=== PATIENT | female | born 1970 | race Caucasian/White ===

== ENCOUNTER 2017-05-17 15:57 | Day surgery (SDC) | payer OTHER ==
[~2017-05-17 15:57] MED LIST: Dexamethasone 20 MG/5 ML VIAL ONE; Lidocaine 1% PF 5 ML VIAL ONE; Ondansetron HCl/PF 4 MG/2 ML Vial ONE; Propofol 200 MG/20 ML VIAL ONE; ePHEDrine/0.9% NaCl/PF SYRINGE 50 mg/10 ml ONE
[2017-05-17] MEDS ORDERED: Fluorouracil 100 MG, Enoxaparin Sodium 25 MG, EPINEPHrine 0.3 MG in Ophthalmic Irrigati... IVPB SCH (16:08)
[2017-05-17] MEDS ORDERED: Phenylephrine 2.5% Ophth Soln 5 ML BOT ONE (16:26)
[2017-05-17] MEDS ORDERED: Cyclopentolate 1% Opth Drop 2 ML BOT ONE (16:26)
[2017-05-17] MEDS ORDERED: Midazolam HCl 2 mg/2 ml Vial ONE (17:01)
[2017-05-17] MEDS ORDERED: Fentanyl 250 MCG/5 ML VIAL ONE (17:01)
--- NOTE | 2017-05-18 10:26 | OP ---
DATE OF PROCEDURE: 05/17/2017 PREOPERATIVE DIAGNOSIS: Rhegmatogenous retinal detachment, right eye. POSTOPERATIVE DIAGNOSIS: Rhegmatogenous retinal detachment, right eye. PROCEDURE PERFORMED: Pars plana vitrectomy and retinal detachment repair, right eye. SURGEON: Dr. Fletcher Byrnes. ANESTHESIA: General endotracheal anesthesia. COMPLICATIONS: None. PROCEDURE IN DETAIL: The patient was identified in the preoperative holding area, appropriate informed consent for the planned surgical procedure on the right eye had been obtained. The patient was transported to the operative suite where appropriate cardiopulmonary monitoring established. General endotracheal anesthesia was initiated. Retrobulbar block was placed. The patient was prepped and draped in the usual sterile manner for ophthalmic surgery on the right eye. Lid speculum was placed in the right eye. The 25- gauge trocars were placed in conjunctiva and sclera supratemporally, inferotemporally, and supranasally. Infusion line was placed inferotemporally. Light pipe and vitreous cutter were inserted into the eye. Core vitrectomy was performed. Tear was noted at the 3 o'clock position. Posterior drain retinotomy was created and a complete air fluid exchange was performed. A 360 laser was placed using endolaser delivery device. A 28% sulfur hexafluoride gas was infused into the eye. Trocars were removed. Superior temporal and superior nasal sclerotomy was sutured closed. Retrobulbar Kenalog and subconjunctival Ancef were placed. Antibiotic ointment placed, and the eye was patched and shielded. Patient taken to the postoperative recovery unit in good condition suffered no immediate perioperative complications. DISCHARGE INSTRUCTIONS: The patient was instructed to keep patch and shield on , position left side down. Follow up in the morning with Dr. Byrnes. NITA
== END 2017-05-17 20:30 | disposition home or self-care (01) ==
LOC: SDC 15:57
PROVIDERS: ATTEND Ophthalmology Retina Specialist
PROC: 08T43ZZ Resection of Right Vitreous, Percutaneous Approach (ICD-10-PCS; principal; 2017-05-17)
DX: H33.011 Retinal detachment with single break, right eye (principal); Z88.2 Allergy status to sulfonamides
CPT/HCPCS: 67025; J0171; J1100; J1650; J2001; J2250; J2405; J2704; J3010; J9190

== ENCOUNTER 2017-06-16 10:42 | Day surgery (SDC) | payer OTHER ==
[2017-06-15 15:54] VITALS: BMI 25.8
[~2017-06-16 10:42] MED LIST changes: +Cyclopentolate 1% Opth Drop 2 ML BOT FS SCH; -Dexamethasone 20 MG/5 ML VIAL ONE; +EPINEPHrine 0.3 MG in Ophthalmic Irrigation Solution 500 ML FS SCH; -Lidocaine 1% PF 5 ML VIAL ONE; -Ondansetron HCl/PF 4 MG/2 ML Vial ONE; +Phenylephrine 2.5% Ophth Soln 5 ML BOT FS SCH; -Propofol 200 MG/20 ML VIAL ONE; -ePHEDrine/0.9% NaCl/PF SYRINGE 50 mg/10 ml ONE
[2017-06-16] MEDS ORDERED: Cyclopentolate 1% Opth Drop 2 ML BOT ONE (11:01)
[2017-06-16] MEDS ORDERED: Phenylephrine 2.5% Ophth Soln 5 ML BOT ONE (11:01)
[2017-06-16] MEDS ORDERED: Midazolam HCl 2 mg/2 ml Vial ONE (11:27)
[2017-06-16] MEDS ORDERED: Fentanyl 100 MCG/2 ML VIAL ONE (11:51)
[2017-06-16] MEDS ORDERED: Ondansetron HCl/PF 4 MG/2 ML Vial ONE ×2 (12:02→16:52)
[2017-06-16] MEDS ORDERED: Propofol 500 MG/50 ML VIAL ONE (12:15)
--- NOTE | 2017-06-16 16:24 | OP ---
DATE OF PROCEDURE: 06/16/2017 PREOPERATIVE DIAGNOSIS: Vitreous hemorrhage, right eye. POSTOPERATIVE DIAGNOSIS: Vitreous hemorrhage, right eye. PROCEDURE PERFORMED: Pars plana vitrectomy, right eye. SURGEON: Dr. Fletcher Byrnes. ANESTHESIA: General endotracheal anesthesia. PROCEDURE IN DETAIL: The patient was identified in the preoperative holding area. Appropriate infor med consent for the planned surgical procedure on the right eye has been obtained. The patient was t ransported to the OR suite. Appropriate cardiopulmonary monitoring established. General endotrachea l anesthesia was initiated. Local anesthesia was initiated with retrobulbar block. The patient was prepped and draped in the usual sterile manner for ophthalmic surgery on the right eye. Lid speculum was placed in the right eye. The 27-gauge trocars were placed in conjunctiva and sclera supratempor ally, inferotemporally, and supranasally. Infusion line was placed inferotemporally. A was pl aced in the supratemporal sclerotomy site and extensive amounts of blood was irrigated into the eye. Vitreous cutter was inserted into the eye and some inferior vitreous was removed containing blood. No areas of retinal elevation. No macular scarring were identified. Trocars were removed. Eye was noted to retain pressure well. Antibiotic ointment was placed, and the eye was patched and shielded. Patient was taken the postoperative recovering unit in good condition having suffered no immediate perioperative complications. DISCHARGE INSTRUCTIONS: The patient was instructed to keep patch and shield on, avoid lifting or nina ding, and follow up in the morning with Dr. Byrnes.
[2017-06-16] MEDS ORDERED: PROPOFOL 200 MG/20 ML VIAL ONE (16:52)
[2017-06-16] MEDS ORDERED: Dexamethasone 20 MG/5 ML VIAL ONE (16:52)
[2017-06-16] MEDS ORDERED: Lidocaine 1% PF 5 ML VIAL ONE (16:52)
== END 2017-06-16 14:06 | disposition home or self-care (01) ==
LOC: SDC 10:42
PROVIDERS: ATTEND Ophthalmology Retina Specialist
PROC: 08T43ZZ Resection of Right Vitreous, Percutaneous Approach (ICD-10-PCS; principal; 2017-06-16)
DX: H43.11 Vitreous hemorrhage, right eye (principal); I10 Essential (primary) hypertension; Z79.899 Other long term (current) drug therapy; Z98.890 Other specified postprocedural states
CPT/HCPCS: J0171; J1100; J2001; J2250; J2405; J2704; J3010